=== PATIENT | male | born 1985 | race Caucasian/White ===

== ENCOUNTER 2024-08-21 12:24 | Inpatient (IN) | payer BC ==
[~2024-08-21 12:24] MED LIST: Iopamidol-370 76% 500 ML MDV (1 ML CHARGE) ONE
[2024-08-21] MEDS ORDERED: Acetaminophen 500 MG TAB ONE (13:29)
[2024-08-21 13:37] LABS: #Basophils 0.03 10x3/uL (0.0-0.2); #Eosinophils Less than 0.03 10x3/uL (0.0-0.7); %Basophils 0.2 % (0.0-1.0); %Eosinophils 0.1 % (0.0-10.0); %Lymphocytes 4.3 % (21.0-51.0); %Monocytes 8.6 % (0.0-10.0); Hematocrit 42.9 % (42.0-52.0); Hemoglobin 14.4 g/dL (14.0-18.0); Mean Corpuscular HGB CONC 33.6 g/dL (32.0-36.0); Mean Corpuscular Hemoglobin 29.4 pg (27.0-31.0); Mean Corpuscular Volume 87.7 fL (78.0-98.0); Mean Platelet Volume 9.2 fL (7.4-10.4); Platelet Count 318 10x3/uL (130-400); RBC Distribution Width 11.8 % (11.5-14.5); Red Blood Cell (RBC) Count 4.89 mill/uL (4.70-6.10)
[2024-08-21 13:52] LABS: ALT (SGPT) 95 U/L (8-55); AST (SGOT) 27 U/L (5-34); Albumin 3.1 g/dL (3.5-5.0); Alkaline Phosphatase 135 U/L (40-110); Anion Gap 15 mmol/L (10-20); BUN (Urea Nitrogen) 9 mg/dL (8.9-20.6); Bilirubin, Total 1.7 mg/dL (0.2-1.2); Calc. Creatinine Clearance 0 mL/min (70-130); Calcium 9.5 mg/dL (7.8-10.44); Carbon Dioxide 27 mmol/L (22-29); Chloride 101 mmol/L (98-107); Estimated GFR 101; Globulin 4.6 g/dL (2.4-3.5); Glucose 113 mg/dL (70-105); Lipase 19 U/L (8-78); Potassium 3.8 mmol/L (3.5-5.1); Protein, Total 7.7 g/dL (6.0-8.3); Sodium 139 mmol/L (136-145)
[2024-08-21] MEDS ORDERED: Piperacillin/Tazobactam 4.5 GM VIAL ONE (14:07)
[2024-08-21] MEDS ORDERED: Sodium Chloride 0.9% 100 ML ONE (14:07)
[2024-08-21] MEDS ORDERED: Ondansetron PF 4 MG/2 ML Vial ONE ×2 (15:13→21:19)
[2024-08-21] MEDS ORDERED: Morphine 4 MG/ML VIAL ONE (15:13)
[2024-08-21] MEDS ORDERED: Acetaminophen 325 MG TAB PO PRN (15:42)
[2024-08-21] MEDS ORDERED: Morphine 2 MG/ML VIAL SLOW IVP PRN (16:20)
[2024-08-21 19:46] VITALS: BMI 30.2
[2024-08-21] MEDS: Lactated Ringer's 1,000 ML IV SCH (20:22)
[2024-08-21] MEDS: Piperacillin/Tazobactam 3.375 GM in Sodium Chloride 0.9% 100 ML IVPB SCH (20:23)
[2024-08-21] MEDS ORDERED: predniSONE 5 MG TAB PO SCH (21:00)
[2024-08-21] MEDS ORDERED: Midazolam HCl 2 mg/2 ml Vial ONE (21:18)
[2024-08-21] MEDS ORDERED: PROPOFOL 20 ML ONE (21:18)
[2024-08-21] MEDS ORDERED: SUGAMMADEX SODIUM 200 MG/2 ML VIAL ONE ×2 (21:18→22:46)
[2024-08-21] MEDS ORDERED: Fentanyl 250 MCG/5 ML VIAL ONE (21:18)
[2024-08-21] MEDS ORDERED: Rocuronium Bromide 10 MG/ML (10ML VIAL) ONE ×2 (21:19→22:45)
[2024-08-21] MEDS ORDERED: Lidocaine 1% PF 5 ML VIAL ONE (21:19)
[2024-08-21] MEDS ORDERED: Dexamethasone 4 mg/ml Vial ONE (21:19)
[2024-08-21] MEDS ORDERED: SUCCINYLCHOLINE/SOD CL,ISO/PF 200 MG/10 ML SYRINGE FS ONE (21:36)
[2024-08-21] MEDS ORDERED: HYDROmorphone 2 MG/ML VIAL ONE (22:12)
[2024-08-21] MEDS ORDERED: Meperidine HCl/PF 25 MG/ML VIAL SLOW IVP PRN (22:19)
[2024-08-21] MEDS ORDERED: Ondansetron HCl/PF 4 MG/2 ML Vial IVP PRN (22:19)
[2024-08-21] MEDS ORDERED: HYDROmorphone 2 MG/ML VIAL SLOW IVP PRN (22:19)
[2024-08-21] MEDS ORDERED: Promethazine HCl 25 MG/ML VIAL IM PRN ×2 (22:19→22:20)
[2024-08-21] MEDS ORDERED: Ketorolac Tromethamine 30 MG/ML VIAL IVP PRN (22:19)
[2024-08-21] MEDS ORDERED: Ondansetron PF 4 MG/2 ML Vial IVP PRN (22:20)
[2024-08-21] MEDS ORDERED: diphenhydrAMINE 25 MG CAP PO PRN (22:20)
[2024-08-21] MEDS ORDERED: diphenhydrAMINE 50 MG/ML VIAL IVP PRN (22:20)
[2024-08-21] MEDS ORDERED: Naloxone HCl 0.4 mg/ml Vial IV PRN (22:20)
[2024-08-21] MEDS ORDERED: diphenhydrAMINE 50 MG/ML VIAL IM PRN (22:20)
[2024-08-21] MEDS ORDERED: Communication Order-Pharmacy FS SCH (22:30)
[2024-08-22] MEDS: Docusate 100 MG CAP PO SCH (00:10)
[2024-08-22] MEDS: Piperacillin/Tazobactam 3.375 GM in Sodium Chloride 0.9% 100 ML IVPB SCH (04:24)
[2024-08-22 05:09] LABS: Hematocrit 40.3 % (42.0-52.0); Hemoglobin 13.2 g/dL (14.0-18.0); Mean Corpuscular HGB CONC 32.8 g/dL (32.0-36.0); Mean Corpuscular Hemoglobin 29.5 pg (27.0-31.0); Mean Platelet Volume 8.9 fL (7.4-10.4); Platelet Count 312 10x3/uL (130-400); RBC Distribution Width 12.1 % (11.5-14.5); Red Blood Cell (RBC) Count 4.48 mill/uL (4.70-6.10)
[2024-08-22 05:24] LABS: ALT (SGPT) 61 U/L (8-55); AST (SGOT) 18 U/L (5-34); Albumin 2.4 g/dL (3.5-5.0); Alkaline Phosphatase 102 U/L (40-110); Anion Gap 13 mmol/L (10-20); BUN (Urea Nitrogen) 5 mg/dL (8.9-20.6); Bilirubin, Total 1.9 mg/dL (0.2-1.2); Calc. Creatinine Clearance 214 mL/min (70-130); Calcium 8.4 mg/dL (7.8-10.44); Carbon Dioxide 23 mmol/L (22-29); Chloride 104 mmol/L (98-107); Estimated GFR 114; Globulin 3.8 g/dL (2.4-3.5); Glucose 133 mg/dL (70-105); Potassium 4.4 mmol/L (3.5-5.1); Protein, Total 6.2 g/dL (6.0-8.3); Sodium 136 mmol/L (136-145)
[2024-08-22 05:54] LABS: Band 9 % (5-11); Burr Cells SLIGHT = 2-5 cells HPF (0-1); Lymphocytes 3 % (21-51); Monocytes 8 % (0-10); Neutrophil 80 % (42-75); Platelet Adequacy Comment Platelets Normal; Polychromasia SLIGHT = 2-3 cells HPF (0-2)
[2024-08-22] MEDS: FLU (Fluarix Triv) TS24-25(6MOS UP)/PF 45 MCG/0.5 ML Syringe IM ONE (08:34)
[2024-08-22] MEDS: Enoxaparin 30 MG (0.3 mL) SYRINGE SC SCH (08:34)
[2024-08-22] MEDS: Pantoprazole 40 MG VIAL IVP SCH (08:34)
[2024-08-22] MEDS: HYDROmorphone/PF 10 MG in Sodium Chloride 0.9% 99 ML IV PRN (12:21)
[2024-08-22 15:16] VITALS: BMI 30.2
[2024-08-22 23:38] LABS: #Basophils 0.05 10x3/uL (0.0-0.2); #Eosinophils Less than 0.03 10x3/uL (0.0-0.7); %Basophils 0.2 % (0.0-1.0); %Eosinophils 0.1 % (0.0-10.0); %Lymphocytes 4.9 % (21.0-51.0); %Monocytes 8.7 % (0.0-10.0); Hemoglobin 12.9 g/dL (14.0-18.0); Mean Corpuscular HGB CONC 32.3 g/dL (32.0-36.0); Mean Platelet Volume 9.3 fL (7.4-10.4); Platelet Count 329 10x3/uL (130-400); RBC Distribution Width 12.4 % (11.5-14.5)
[2024-08-23 00:35] LABS: INR-International Normal Ratio 1.4; Prothrombin Time 16.9 sec (12.0-14.7)
[2024-08-23 00:36] LABS: Anion Gap 13 mmol/L (10-20); BUN (Urea Nitrogen) 6 mg/dL (8.9-20.6); Calc. Creatinine Clearance 187 mL/min (70-130); Calcium 8.7 mg/dL (7.8-10.44); Carbon Dioxide 22 mmol/L (22-29); Chloride 101 mmol/L (98-107); Estimated GFR 106; Glucose 149 mg/dL (70-105); PTT 48.6 sec (22.9-36.1); Potassium 4.3 mmol/L (3.5-5.1); Sodium 132 mmol/L (136-145)
[2024-08-23] MEDS: Labetalol HCl 100 MG/20 ML VIAL SLOW IVP PRN (01:55)
[2024-08-23] MEDS: Sodium Chloride 0.9% 1,000 ML IV SCH (05:09)
[2024-08-23 06:19] LABS: #Basophils 0.05 10x3/uL (0.0-0.2); %Basophils 0.2 % (0.0-1.0); %Eosinophils 0.2 % (0.0-10.0); %Lymphocytes 3.6 % (21.0-51.0); %Monocytes 8.6 % (0.0-10.0); %Neutrophils 85.8 % (42.0-75.0); Hematocrit 39.2 % (42.0-52.0); Hemoglobin 12.8 g/dL (14.0-18.0); Mean Corpuscular HGB CONC 32.7 g/dL (32.0-36.0); Mean Corpuscular Hemoglobin 30.2 pg (27.0-31.0); Mean Corpuscular Volume 92.5 fL (78.0-98.0); Mean Platelet Volume 8.9 fL (7.4-10.4); Platelet Count 304 10x3/uL (130-400); RBC Distribution Width 12.5 % (11.5-14.5); Red Blood Cell (RBC) Count 4.24 mill/uL (4.70-6.10)
[2024-08-23 06:32] LABS: ALT (SGPT) 48 U/L (8-55); AST (SGOT) 22 U/L (5-34); Albumin 2.3 g/dL (3.5-5.0); Alkaline Phosphatase 85 U/L (40-110); Anion Gap 12 mmol/L (10-20); BUN (Urea Nitrogen) 5 mg/dL (8.9-20.6); Bilirubin, Total 2.6 mg/dL (0.2-1.2); Calc. Creatinine Clearance 199 mL/min (70-130); Calcium 8.9 mg/dL (7.8-10.44); Carbon Dioxide 26 mmol/L (22-29); Chloride 101 mmol/L (98-107); Estimated GFR 112; Globulin 4.1 g/dL (2.4-3.5); Glucose 140 mg/dL (70-105); Potassium 4.3 mmol/L (3.5-5.1); Protein, Total 6.4 g/dL (6.0-8.3); Sodium 135 mmol/L (136-145)
[2024-08-23 06:52] LABS: Hep C IgG Ab NONREACTIVE S/CO (NonReactive); Hep C Index 0.07 S/CO (0-0.79)
[2024-08-23 06:53] LABS: HBsAg Index 0.33 S/CO (0-0.99); Hep A IgM AB NONREACTIVE (NonReactive); Hep A IgM S/CO 0.16 S/CO (0-0.79); Hep B Surf Ag NONREACTIVE S/CO (NonReactive)
[2024-08-23] MEDS: Simethicone Chewable 80 MG TAB PO SCH (09:30)
[2024-08-23] MEDS: Ketorolac Tromethamine 30 MG (1 mL) VIAL IVP PRN (12:51)
[2024-08-23] MEDS ORDERED: Simethicone Chewable 80 MG TAB PO PRN (15:30)
[2024-08-24 08:31] LABS: #Basophils 0.03 10x3/uL (0.0-0.2); %Basophils 0.2 % (0.0-1.0); %Eosinophils 1.9 % (0.0-10.0); %Lymphocytes 3.5 % (21.0-51.0); %Monocytes 7.9 % (0.0-10.0); Hematocrit 33.1 % (42.0-52.0); Hemoglobin 10.4 g/dL (14.0-18.0); Mean Corpuscular HGB CONC 31.4 g/dL (32.0-36.0); Mean Corpuscular Hemoglobin 29.6 pg (27.0-31.0); Mean Corpuscular Volume 94.3 fL (78.0-98.0); Mean Platelet Volume 9.1 fL (7.4-10.4); Platelet Count 240 10x3/uL (130-400); RBC Distribution Width 12.4 % (11.5-14.5); Red Blood Cell (RBC) Count 3.51 mill/uL (4.70-6.10)
[2024-08-24 08:57] LABS: ALT (SGPT) 40 U/L (8-55); AST (SGOT) 25 U/L (5-34); Albumin 1.9 g/dL (3.5-5.0); Alkaline Phosphatase 69 U/L (40-110); Anion Gap 12 mmol/L (10-20); BUN (Urea Nitrogen) 7 mg/dL (8.9-20.6); Calc. Creatinine Clearance 223 mL/min (70-130); Calcium 8.5 mg/dL (7.8-10.44); Carbon Dioxide 25 mmol/L (22-29); Chloride 106 mmol/L (98-107); Estimated GFR 116; Globulin 3.7 g/dL (2.4-3.5); Glucose 110 mg/dL (70-105); Potassium 3.9 mmol/L (3.5-5.1); Protein, Total 5.6 g/dL (6.0-8.3); Sodium 139 mmol/L (136-145)
[2024-08-25] MEDS: Sodium Chloride 0.9% 500 ML IV SCH (01:42)
[2024-08-25 05:53] LABS: #Basophils 0.03 10x3/uL (0.0-0.2); %Basophils 0.3 % (0.0-1.0); %Eosinophils 2.1 % (0.0-10.0); %Lymphocytes 4.9 % (21.0-51.0); %Monocytes 9.1 % (0.0-10.0); %Neutrophils 81.4 % (42.0-75.0); Hemoglobin 9.8 g/dL (14.0-18.0); Mean Corpuscular HGB CONC 31.6 g/dL (32.0-36.0); Mean Corpuscular Hemoglobin 29.7 pg (27.0-31.0); Mean Corpuscular Volume 93.9 fL (78.0-98.0); Platelet Count 242 10x3/uL (130-400); RBC Distribution Width 12.6 % (11.5-14.5)
[2024-08-25 06:12] LABS: ALT (SGPT) 53 U/L (8-55); AST (SGOT) 50 U/L (5-34); Albumin 1.8 g/dL (3.5-5.0); Alkaline Phosphatase 75 U/L (40-110); Anion Gap 13 mmol/L (10-20); BUN (Urea Nitrogen) 8 mg/dL (8.9-20.6); Bilirubin, Total 2.9 mg/dL (0.2-1.2); Calc. Creatinine Clearance 223 mL/min (70-130); Calcium 8.3 mg/dL (7.8-10.44); Carbon Dioxide 27 mmol/L (22-29); Chloride 109 mmol/L (98-107); Estimated GFR 116; Globulin 3.6 g/dL (2.4-3.5); Glucose 99 mg/dL (70-105); Potassium 4.1 mmol/L (3.5-5.1); Protein, Total 5.4 g/dL (6.0-8.3); Sodium 145 mmol/L (136-145)
[2024-08-25] MEDS ORDERED: Lactated Ringer's 1,000 ML IV SCH (07:45)
[2024-08-25] MEDS ORDERED: Acetaminophen 325 MG TAB PO SCH (09:00)
[2024-08-25] MEDS: Acetaminophen 500 MG TAB PO SCH (09:00)
[2024-08-25] MEDS ORDERED: Iopamidol-370 76% 500 ML MDV (1 ML CHARGE) ONE (10:21)
[2024-08-25 10:36] LABS: HBCM Index 0.11 S/CO (0-0.79); Hepatitis B Core IgM Abs NONREACTIVE S/CO (NonReactive)
[2024-08-25] MEDS ORDERED: HYDROcodone/Acetaminophen 5/325 mg Tablet PO PRN (13:22)
[2024-08-25] MEDS: traMADol HCl 50 MG TAB PO PRN (17:35)
[2024-08-25] MEDS: Ibuprofen 600 MG TAB PO PRN (20:10)
[2024-08-26 08:10] VITALS: BP 149/104; TEMP 97.4
[2024-08-26] MEDS: Methylcellulose 500 MG TAB PO SCH (09:24)
[2024-08-26] MEDS: Ondansetron ODT 4 MG TAB PO PRN (13:25)
[2024-08-27 12:18] LABS: QuantiFERON-TB Gold Plus Negative (Negative)
== END 2024-08-26 14:06 | disposition home or self-care (01) | DRG 853 ==
LOC: ERS 12:24 → SURG A 15:10
PROVIDERS: ADMIT Family Medicine; ATTEND Family Medicine
PROC: 0DTF0ZZ Resection of Right Large Intestine, Open Approach (ICD-10-PCS; principal; 2024-08-21)
PROC: 0W9G0ZZ Drainage of Peritoneal Cavity, Open Approach (ICD-10-PCS; 2024-08-21)
DX: A41.9 Sepsis, unspecified organism (principal); J95.822 Acute and chronic postprocedural respiratory failure; K63.1 Perforation of intestine (nontraumatic); K50.914 Crohn's disease, unspecified, with abscess; E87.1 Hypo-osmolality and hyponatremia; K31.89 Other diseases of stomach and duodenum; Z79.52 Long term (current) use of systemic steroids; Z79.899 Other long term (current) drug therapy
CPT/HCPCS: 36415; 71045; 71275; 74018; 74177; 80053; 80074; 83605; 83690; 83735; 83880; 83930; 85025; 85610; 85730; 86480; 86850; 86900; 86901; 87040; 87070; 87076; 87077; 87186; 87205; 88307; 93005; 93010; 96361; 96365; 96375; A4314; A4649; J1100; J1650; J1885; J2250; J2272; J2405; J2470; J2543; J2704; J3010; J7030; J7120; Q0162; Q9967